=== PATIENT | male | born 1960 | race Caucasian/White ===

== ENCOUNTER 2017-05-20 09:40 | Emergency (ER) | payer SELFPAY ==
[~2017-05-20] VITALS: Ht 182.9 cm; Wt 98.0 kg
[~2017-05-20 09:40] MED LIST: ASPIR-LOW81 M1 PO; DAILY VALUE1 EACH PO; Flomax PO; PROBIOTIC PO; Percocet 5/325,Endoc PO; SIMVASTATIN5 MG PO; Vicodin,Norco 5/325 PO
[2017-05-20 10:26] LABS: APPEARANCE TURBID ((CLEAR)); BILIRUBIN NEGATIVE; BLOOD MODERATE; COLOR YELLOW ((YELLOW)); GLUCOSE (STRIP) NEGATIVE; KETONES NEGATIVE; LEUKOCYTES NEGATIVE; NITRITE NEGATIVE; PROTEIN (STRIP) 30; SPECIFIC GRAVITY 1.019 (1.000-1.030); UROBILINOGEN 0.2 MG/DL (0.2-1.0)
[2017-05-20 10:50] LABS: EPITHELIAL CELLS RARE /HPF; WHITE BLOOD CELLS 0-5 /HPF (0-5)
[2017-05-20 10:51] LABS: AMORPHOUS PHOSPHATE CRYSTALS 3+; BACTERIA 1+ /HPF; FINE GRANULAR CASTS 0-5 /LPF; MUCUS 1+ /LPF; UCUL ADDED? NO
[2017-05-20 11:04] LABS: HEMATOCRIT 46.9 % (38.0-50.0); HEMOGLOBIN 16.4 G/DL (12.5-16.6); MCH 31.5 PG (29.0-34.0); PLATELET COUNT 193 K/uL (156-360); RBC DIS.WIDTH-CV 12.3 % (11.8-14.6); RBC DIS.WIDTH-SD 40.7 % (39-53); RED BLOOD COUNT 5.21 M/uL (4.00-5.50); WHITE BLOOD COUNT 11.3 K/uL (4.1-10.2)
[2017-05-20 11:11] LABS: ALBUMIN 4.5 g/dL (3.2-4.8)
[2017-05-20 11:12] LABS: CHLORIDE 106 mEq/L (99-109); POTASSIUM 4.3 mEq/L (3.7-5.4); SODIUM 140 mEq/L (136-147)
[2017-05-20 11:14] LABS: GLUCOSE 131 mg/dL (70-99); TOTAL PROTEIN 7.1 g/dL (6.4-8.3)
[2017-05-20 11:16] LABS: TOTAL BILIRUBIN 0.9 mg/dL (0.0-1.0)
[2017-05-20 11:17] LABS: ALKALINE PHOSPHATASE 65 IU/L (3-129)
[2017-05-20 11:18] LABS: CREATININE 0.9 mg/dL (0.6-1.3); GFR ESTIMATE (CALCULATED) > 59 mL/min/ (58.99-99999)
[2017-05-20 11:19] LABS: AST (GOT) 19 IU/L (2-34); UREA NITROGEN (BUN) 12 mg/dL (9-23)
[2017-05-20 11:21] LABS: ALT (GPT) 25 IU/L (3-49)
[2017-05-20 11:50] LABS: LIPASE 32 U/L (1.0-51.0)
[2017-05-20] MEDS ORDERED: TYLENOL WITH C1 EACH PO (16:18)
[2017-05-20] MEDS ORDERED: ZOFRAN4 MG PO (16:18)
[2017-05-20 16:37] VITALS: BP 132/83
== END 2017-05-20 16:43 | disposition home or self-care (01) ==
LOC: EME 09:40
DX: N20.2 Calculus of kidney with calculus of ureter (principal); K57.30 Diverticulosis of large intestine without perforation or abscess without bleeding; K76.0 Fatty (change of) liver, not elsewhere classified; N40.0 Benign prostatic hyperplasia without lower urinary tract symptoms; Z79.82 Long term (current) use of aspirin; Z90.49 Acquired absence of other specified parts of digestive tract
CPT/HCPCS: 74177; 80053; 81003; 83690; 85027; 99281; 99285; J2270; J2405; J7030

== ENCOUNTER 2017-06-10 03:16 | Emergency (ER) | payer SELFPAY ==
[~2017-06-10] VITALS: Ht 182.9 cm; Wt 96.3 kg
[~2017-06-10 03:16] MED LIST changes: +TYLENOL WITH C1 EACH PO; +ZOFRAN4 MG PO
[2017-06-10 03:43] LABS: APPEARANCE SL.HAZY ((CLEAR)); BILIRUBIN NEGATIVE; BLOOD MODERATE; COLOR YELLOW ((YELLOW)); GLUCOSE (STRIP) NEGATIVE; KETONES 5; LEUKOCYTES NEGATIVE; NITRITE NEGATIVE; PROTEIN (STRIP) 100; UROBILINOGEN 0.2 MG/DL (0.2-1.0)
[2017-06-10 04:01] LABS: HEMATOCRIT 46.4 % (38.0-50.0); HEMOGLOBIN 16.6 G/DL (12.5-16.6); MCH 32.2 PG (29.0-34.0); MCHC 35.8 G/DL (30.0-36.0); MCV 90.1 FL (86-99); PLATELET COUNT 228 K/uL (156-360); RBC DIS.WIDTH-CV 12.7 % (11.8-14.6); RED BLOOD COUNT 5.15 M/uL (4.00-5.50); WHITE BLOOD COUNT 13.4 K/uL (4.1-10.2)
[2017-06-10 04:16] LABS: CHLORIDE 103 mEq/L (99-109); POTASSIUM 3.7 mEq/L (3.7-5.4); SODIUM 140 mEq/L (136-147)
[2017-06-10 04:17] LABS: GLUCOSE 125 mg/dL (70-99)
[2017-06-10 04:21] LABS: CREATININE 1.5 mg/dL (0.6-1.3); GFR ESTIMATE (CALCULATED) 51 mL/min/ (58.99-99999)
[2017-06-10 04:22] LABS: UREA NITROGEN (BUN) 24 mg/dL (9-23)
[2017-06-10 04:39] LABS: EPITHELIAL CELLS RARE /HPF; MUCUS NONE SEEN /LPF; WHITE BLOOD CELLS 0-5 /HPF (0-5)
[2017-06-10 04:40] LABS: AMORPHOUS URATES CRYSTALS 1+; BACTERIA 1+ /HPF; UCUL ADDED? NO
[2017-06-10] MEDS ORDERED: FLOMAX0.4 MG PO (05:41)
[2017-06-10 06:21] VITALS: BP 145/90
== END 2017-06-10 06:21 | disposition home or self-care (01) ==
LOC: EME 03:16
DX: N13.2 Hydronephrosis with renal and ureteral calculous obstruction (principal); Z87.442 Personal history of urinary calculi; Z79.82 Long term (current) use of aspirin
CPT/HCPCS: 74018; 76770; 80048; 81003; 85027; 99281; 99284; J1885